=== PATIENT | male | born 1950 | race Caucasian/White ===

== ENCOUNTER 2017-05-10 07:41 | Emergency (ER) | payer MEDICARE, OTHER ==
--- NOTE | ~2017-05-10 | CR72 ---
[facility] A Service of [facility] RADIOLOGY TEXT RESULTS PATIENT: SMILEY GARAY LOCATION: SED : 48 UNIT #: [id number] AGE: [address]: Hector Pearl MD SEX: M ORDER DR: [id number] [place] [id number] E MR#: [id number] Acc #: [id number] NAME: SMILEY GARAY : 1950 SEX: M STUDY DATE/TIME: 05/10/2017 8:08 UNIT: SED ROOM: STUDY DESCRIPTION: CR Chest Single View Portable Attending Physician: Hector Pearl M.D. Ordering Physician: Hector Pearl M.D. Primary Care Physician: Mac Mcmahon M.D. MEDICAL IMAGING REPORT This report is preliminary unless electronic signature is present. EXAM Frontal chest 05/10/2017 INDICATIONS 66-year-old male with shortness of air and wheezing symptoms began last night whether set off COPD, hypertension. TECHNIQUE Frontal chest compared with 10/02/2013 FINDINGS Cardiac silhouette is stable. Lung volumes are low. There is bronchovascular crowding. Patchy opacities are present in the mid and lower lung zone on the left and in the lower lung zone on the right. Findings are suspicious for pneumonia in the appropriate clinical context particularly on the left. Follow up to clearing after appropriate therapy is recommended. No pneumothorax. Background changes of emphysema. No significant effusion. IMPRESSION 1. Airspace opacities in the left greater than right lung suspicious for pneumonia particular on the left. No effusion or pneumothorax. Follow p to clearing recommended. Dictated by... Werner Rowe M.D. THIS IS AN ELECTRONICALLY VERIFIED REPORT Werner Rowe M.D. at 05/10/2017 1:44 PM MERLYY/valeriy [facility] A Service of [facility] RADIOLOGY TEXT RESULTS PATIENT: SMILEY GARAY LOCATION: SED : 48 UNIT #: [id number] AGE: [address]: Hector Pearl MD SEX: M ORDER DR: TD: 05/10/2017 09:19 JOB #: [id number] MEDICAL IMAGING REPORT Page 1 of 1
--- NOTE | ~2017-05-10 | EKG ---
PATIENT: SMILEY GARAY UNIT #: [id number] Ventricular Rate: 92 BPM Atrial Rate: 92 BPM P-R Interval: 152 ms QRS Duration: 86 ms Q-T Interval: 322 ms QTC Calculation(Bezet): 398 ms P Rodeo: 18 degrees Calculated R Rodeo: -45 degrees Calculated T Rodeo: 46 degrees Diagnosis Line: Normal sinus rhythm Diagnosis Line: Left anterior fascicular block Diagnosis Line: Nonspecific ST and T wave abnormality Diagnosis Line: Abnormal ECG Diagnosis Line: When compared with ECG of 18-DEC-2012 15:28, Diagnosis Line: No significant change was found Diagnosis Line: Confirmed by MALI COOLEY MD ([id number]) on Diagnosis Line: 05/11/2017 1:35:27 PM INTERPRETING MD: LENORA JALLOH
--- NOTE | ~2017-05-10 | CT16 ---
[facility] A Service of [facility] RADIOLOGY TEXT RESULTS PATIENT: SMILEY GARAY LOCATION: SED : 48 UNIT #: [id number] AGE: [address]: Hector Pearl MD SEX: M ORDER DR: [id number] [place] [id number] E MR#: [id number] Acc #: [id number] NAME: SMILEY GARAY. : 1950 SEX: M STUDY DATE/TIME: 05/10/2017 9:00 UNIT: SED ROOM: STUDY DESCRIPTION: CT Angio Chest for PE Attending Physician: Hector Pearl M.D. Ordering Physician: Hector Pearl M.D. Primary Care Physician: Mac Mcmahon M.D. MEDICAL IMAGING REPORT This report is preliminary unless electronic signature is present. EXAM CTA chest with contrast, pulmonary embolus protocol. Date: 05/10/2017 HISTORY A 66-year-old male with shortness of breath and back pain which began last night. Wheezing and productive cough today. COPD. Additional history of cardiac disease, hypertension, atrial fibrillation. COMPARISON AP portable chest 05/10/2017 at 08:08. No prior CT chest in this institution for comparison. PROCEDURE 2 mL axial images through the chest after intravenous contrast administration. 3-D coronal MIP reformatted images were obtained at a dedicated workstation. TECHNIQUE This CT exam was performed with one or more of the following radiation dose reduction techniques: automatic exposure control, adjustment of mA and/or kV according to patient size, and iterative reconstruction. FINDINGS No pulmonary embolism, aortic aneurysm or dissection is appreciated. Dense coronary calcifications are noted. Advanced emphysematous changes. Patchy alveolar densities are demonstrated within the left upper and left lower lobes and right lower lobe thought to represent changes of multifocal pneumonia. Airspace disease is greatest in the left lower lobe. There appears to be partial STS. [facility] A Service of [facility] RADIOLOGY TEXT RESULTS PATIENT: SMILEY GARAY LOCATION: SED : 48 UNIT #: [id number] AGE: [address]: Hector Pearl MD SEX: M ORDER DR: opacification or mucous plugging within the left lower lobe bronchi. No pericardial effusion or pleural effusion or pneumothorax is seen. No pathologic adenopathy is evident. The included portions of the upper abdominal organs appear unremarkable. No acute osseous abnormalities are identified. IMPRESSION 1. No pulmonary embolism. 2. Patchy airspace disease in the bilateral lower lobe and left upper lobe most consistent with the appearance of multifocal pneumonia. Findings are greatest within left lower lobe. 3. Partial opacification or mucous plugging within left lower lobe bronchi. 4. Advanced emphysema. Dictated by... Viridiana Corona M.D. THIS IS AN ELECTRONICALLY VERIFIED REPORT Viridiana Corona M.D. at 05/12/2017 9:33 PM Junaid TD: 05/10/2017 12:00 JOB #: [id number] MEDICAL IMAGING REPORT Page 1 of 1
[~2017-05-10 07:41] MED LIST: ADVAIR 230-21 INH; ASPIR-TRIN325 MG PO; CEPHALEXIN500 M1 PO; CLARITIN10 M3 PO; DIGOXIN125 MCG PO; FLONASE 0.05% N16 G1; FORADIL12 MCG NEB; METOPROLOL SUCC25 MG PO; METOPROLOL TAR25 MG PO; NEXIUM PO; ORAPRED ODT10 MG PO; PREDNISONE PO; PREDNISONE50 MG PO; PROAIR RESPICL90 MCG; SPIRIVA18 MCG INH; VIAGRA50 MG DOB; VICODIN 5/500 T1 TAB PO; XOPENEX HFA15 GM IH; ZITHROMAX PO; ZOCOR PO
[2017-05-10] MEDS ORDERED: DIGOXIN PO (07:55)
[2017-05-10] MEDS ORDERED: ADVAIR INHALER INH (07:55)
[2017-05-10] MEDS ORDERED: VIAGRA (07:56)
[2017-05-10] MEDS ORDERED: SPIRIVA INHALER INH (07:56)
[2017-05-10] MEDS ORDERED: ZOCOR PO (07:56)
[2017-05-10] MEDS ORDERED: METOPROLOL PO (07:56)
[2017-05-10] MEDS ORDERED: FLONASE (07:56)
[2017-05-10] MEDS ORDERED: FLOMAX PO (07:56)
[2017-05-10] MEDS ORDERED: PROAIR INHALER INH (07:57)
[2017-05-10] MEDS ORDERED: ASPIRIN PO (07:57)
[2017-05-10 08:14] LABS: BASOPHIL% 0.4 % (0-2.5); EOSINOPHIL% 0.1 % (0.0-7.0); HEMATOCRIT 42.5 % (38.0-50.0); LYMPHOCYTE% 8.4 % (17.0-45.0); MEAN CELL VOLUME 82.7 FL (83-96); MEAN CORPUSCULAR HEMOGLOBIN 27.2 PG (28-34); MEAN CORPUSCULAR HGB CONC 32.9 g/dL (30-36); MEAN PLATELET VOLUME 9.4 FL (6.5-11.5); MONOCYTE# 0.8 X10e3 (0-1.0); MONOCYTE% 6.6 % (3.0-12.0); NEUTROPHIL# 9.7 X10e3 (1.5-7.1); NEUTROPHIL% 84.5 % (40-75); PLATELET COUNT 174 X10e3 (140-420); RED BLOOD COUNT 5.14 X10e (3.90-5.60); RED CELL DISTRIBUTION WIDTH 14.7 % (11.0-15.5); WHITE BLOOD COUNT 11.5 X10e3 (4.0-10.5)
[2017-05-10 08:26] LABS: INR 1.3; PROTHROMBIN TIME (PATIENT) 14.5 SECONDS (9.5-12.4)
[2017-05-10 08:27] LABS: DIFF IND NO
[2017-05-10 08:34] LABS: PARTIAL THROMBOPLASTIN TIME 28.4 SECONDS (25.6-38.1)
[2017-05-10 08:35] LABS: ALBUMIN SERUM 3.9 g/dL (3.5-5.0); BILIRUBIN, DIRECT 0.1 mg/dL (0.0-0.2); BILIRUBIN,INDIRECT 0.9 mg/dL (0.0-0.9); BUN/CREATININE RATIO 16.25; CREATININE SERUM 0.8 mg/dL (0.6-1.4); DIGOXIN (LANOXIN) 0.6 ng/ml (1.0-2.0); GLOM FILT RATE Estimated 91.8 mL/min (>60); PROTEIN TOTAL SERUM 6.9 g/dL (6.0-8.3)
[2017-05-10 08:37] LABS: POC - CKMB 5.2 ng/mL (0.0-7.9); POC - TROPONIN <0.05 ng/mL (<=0.05)
== END 2017-05-10 18:30 ==
LOC: SED 07:41
PROVIDERS: Emergency Medicine
DX: J18.1 Lobar pneumonia, unspecified organism (principal); R09.02 Hypoxemia; I10 Essential (primary) hypertension; Z79.899 Other long term (current) drug therapy
CPT/HCPCS: 36415; 71010; 71275; 80048; 80076; 80162; 82553; 83605; 83735; 83880; 84484; 85025; 85379; 85610; 85730; 87040; 93005; 94640; 96374; 99285; J1956; J2930; Q9967